=== PATIENT | female | born 1990 | race Caucasian/White ===

== ENCOUNTER 2017-07-31 18:20 | Emergency (ER) | payer MEDICAID ==
[2017-07-31 18:28] VITALS: BMI 35.5
--- NOTE | 2017-07-31 18:46 | DR.GENAD ---
HPI - PCP Primary Care Physician: CHARLES - Complaint/Symptoms Chief Complaint Doctors Comments: Patient presents with complaint of nausea and vomiting most of day. Onset of symptoms of nausea this morninng and has continued associated with vomiting. She admits to body aches and headache for one day. 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 Chief Complaint:: PATIENT STATED THAT SHE HAS BEEN SICK ALL DAY AND NIGHT THAT SHE TAKES MEDS FOR HEART RATE AND HTN BUT CAN'T KEEP IT DOWN. - Source History Provided: Patient - Mode of Arrival Mode of Arrival: Ambulatory - Timing Onset of Chief Complaint: 07/31/17 PMH - PMH Past Medical History: Yes Past Medical History: Depression, Seizures Past Medical History Comment: TACHYCARDIA Past Surgical History: Yes Surgical History: Tonsillectomy - Family History History of Family Medical Conditions: No - Social History Does patient currently use any type of tobacco product: No Have you used tobacco products in the last 12 months: No Type of Tobacco Use: None Does any household member use tobacco: No Alcohol Use: None Do you use any recreational Drugs:: No Lives With: Family Lives Where: Home - infectious screening In the last 2 months have you had wt loss of >10#?: NO Have you had fever, night sweats or hemotysis?: No Have you traveled outside the country in the last 6 months?: No Isolation: Standard ROS - Review of Systems Constitutional: Diaphoresis Eyes: No Symptoms Reported ENTM: No Symptoms Reported Respiratoy: No Symptoms Reported Cardiovascular: No Symptoms Reported Gastrointestinal/Abdominal: No Symptoms Reported Genitourinary: No Symptoms Reported Neurological: Headache Musculoskeletal: No Symptoms Reported Integumentary: No Symptoms Reported Hematologic/Lymphatic: No Symptoms Reported Endocrine: No Symptoms Reported Psychiatric: No Symptoms Reported All Other Systems: Reviewed and Negative PE - Vital Signs Vitals: Temperature 98.8 F Pulse Rate [Left Brachial] 128 Pulse Rate 147 Respiratory Rate 20 Blood Pressure [Right Arm] 123/73 Blood Pressure 130/63 O2 Sat by Pulse Oximetry 97 - General Limitations: No Limitations General Appearance: Alert, In No Apparent Distress - Head Head Exam: Normal Inspection, Atraumatic - Eyes Eye exam: Normal Appearance, PERRL, EOMI - ENT ENT Exam: Normal Exam External Ear Exam: Normal External Inspection TM/Canal Exam: Bilateral Normal Nose Exam: Normal Nose Exam Mouth Exam: Normal Inspection Throat Exam: Normal Inspection - Neck Neck Exam: Normal Inspection - Chest Chest Inspection: Normal Inspection - Respiratory Respiratory Exam: Normal Lung Sounds Bilat Respiratory Exam: Bilateral Clear to Auscultation - Cardiovascular Cardiovascular Exam: Tachycardia - Abdominal Exam Abdominal Exam: Normal Inspection Abdominal Tenderness: negative: RUQ, RLQ, LUQ, LLQ, Epigastrium, Suprapubic, Diffuse, Mild, Moderate, Severe, Other - Extremities Extremities Exam: Normal Inspection, Full ROM - Back Back Exam: Normal Inspection, Full ROM - Neurologic Neurological Exam: Alert, Oriented X3, CN II-XII Intact - Psychiatric Psychiatric Exam: Normal Affect - Skin Skin Exam: Warm, Dry, Intact Course - Reevaluation 1st: Improved ROR - Labs Reviewed Laboratory Results Reviewed?: Yes (Influenza negative) Result Diagrams: 07/31/17 19:00 07/31/17 19:00 Laboratory: WBC 8.4 X10^3/uL (3.6-10.0) 07/31/17 19:00 RBC 4.37 X10^6/uL (3.5-5.4) 07/31/17 19:00 Hgb 12.9 g/dL (12.0-16.0) 07/31/17 19:00 Hct 37.9 % (36.0-47.0) 07/31/17 19:00 MCV 86.8 fL (80.0-100.0) 07/31/17 19:00 MCH 29.6 pg (27.0-34.0) 07/31/17 19:00 MCHC 34.1 g/dL (33.0-35.0) 07/31/17 19:00 RDW 13.3 % (11.6-16.5) 07/31/17 19:00 Plt Count 308 X10^3/uL (150.0-450.0) 07/31/17 19:00 MPV 7.7 fL (7.4-11.0) 07/31/17 19:00 Neut % 88.6 % (42.0-75.0) H 07/31/17 19:00 Lymph % 4.7 % (21.0-51.0) L 07/31/17 19:00 [place] % 5.9 % (0.0-13.0) 07/31/17 19:00 Eos % 0.5 % (0.9-2.9) L 07/31/17 19:00 Baso % 0.3 % (0.2-1.0) 07/31/17 19:00 Neut # 7.5 x10^3/uL (2.2-4.8) H 07/31/17 19:00 Lymph # 0.4 X10^3/uL (1.3-2.9) L 07/31/17 19:00 [place] # 0.5 x10^3/uL (0.3-0.8) 07/31/17 19:00 Eos # 0.0 x10^3/uL (0.0-0.2) 07/31/17 19:00 Baso # 0.0 X10^3/uL (0.0-0.1) 07/31/17 19:00 Absolute Nucleated RBC 0.0 /100WBC 07/31/17 19:00 Sodium 135 mmol/L (136-145) L 07/31/17 19:00 Corrected Sodium 135 mmol/L (136-145) L 07/31/17 19:00 Potassium 3.7 mmol/L (3.5-5.1) 07/31/17 19:00 Chloride 100 mmol/L (98-107) 07/31/17 19:00 Carbon Dioxide 26.1 mmol/L (21-32) 07/31/17 19:00 BUN 10 mg/dL (7-18) 07/31/17 19:00 Creatinine 0.86 mg/dL (0.55-1.02) 07/31/17 19:00 Est GFR (MDRD) Af Amer > 60 (>60) 07/31/17 19:00 Est GFR (MDRD) Non-Af > 60 (>60) 07/31/17 19:00 Glucose 116 mg/dL (65-99) H 07/31/17 19:00 Calcium 8.6 mg/dL (8.5-10.1) 07/31/17 19:00 C-Reactive Protein 16.30 mg/L (0-3.0) H 07/31/17 19:00 Influenza Type A (PCR) Negative (NEGATIVE) 07/31/17 18:57 Influenza Type B (PCR) Negative (NEGATIVE) 07/31/17 18:57 - Diagnosis Discharge Problem: Influenza-like illness - Follow ups/Referrals Follow ups/Referrals: ION SOTO [Primary Care Provider] - 3 days - Instructions
[2017-07-31] MEDS ORDERED: NS 1000 ML 1,000 ML IV ONE (18:53)
[2017-07-31] MEDS ORDERED: TORADOL 30 MG VIAL IVP ONE (18:53)
[2017-07-31] MEDS ORDERED: PHENERGAN INJ 25 MG IV ONE (18:54)
[2017-07-31] MEDS ORDERED: NS 1000 ML 1,000 ML ONE (18:57)
[2017-07-31] MEDS ORDERED: PHENERGAN INJ 25 MG ONE (18:58)
[2017-07-31] MEDS ORDERED: TORADOL 30 MG VIAL ONE (18:58)
[2017-07-31 19:17] LABS: BASOPHILS % (AUTO) 0.3 % (0.2-1.0); EOSINOPHILS % (AUTO) 0.5 % (0.9-2.9); HEMATOCRIT 37.9 % (36.0-47.0); HEMOGLOBIN 12.9 g/dL (12.0-16.0); LYMPHOCYTES # (AUTO) 0.4 X10^3/uL (1.3-2.9); LYMPHOCYTES % (AUTO) 4.7 % (21.0-51.0); MEAN CORPUSCULAR HEMOGLOBIN 29.6 pg (27.0-34.0); MEAN CORPUSCULAR HGB CONC 34.1 g/dL (33.0-35.0); MEAN CORPUSCULAR VOLUME 86.8 fL (80.0-100.0); MEAN PLATELET VOLUME 7.7 fL (7.4-11.0); MONOCYTES # (AUTO) 0.5 x10^3/uL (0.3-0.8); MONOCYTES % (AUTO) 5.9 % (0.0-13.0); NEUTROPHILS # (AUTO) 7.5 x10^3/uL (2.2-4.8); NEUTROPHILS % (AUTO) 88.6 % (42.0-75.0); PLATELET COUNT 308 X10^3/uL (150.0-450.0); RED BLOOD COUNT 4.37 X10^6/uL (3.5-5.4); RED CELL DISTRIBUTION WIDTH 13.3 % (11.6-16.5); WHITE BLOOD COUNT 8.4 X10^3/uL (3.6-10.0)
[2017-07-31 19:22] LABS: BLOOD UREA NITROGEN 10 mg/dL (7-18); CALCIUM 8.6 mg/dL (8.5-10.1); CARBON DIOXIDE 26.1 mmol/L (21-32); CHLORIDE 100 mmol/L (98-107); COR NA(FOR HYPERGLY) 135 mmol/L (136-145); CREATININE 0.86 mg/dL (0.55-1.02); SODIUM 135 mmol/L (136-145); eGFR BLACK RACES > 60 (>60); eGFR NON BLACK RACES > 60 (>60)
[2017-07-31 20:40] VITALS: BP 123/73
== END 2017-07-31 20:56 | disposition home or self-care (01) ==
LOC: ER 18:32
DX: J11.1 Influenza due to unidentified influenza virus with other respiratory manifestations (principal)
CPT/HCPCS: 36415; 80048; 85025; 86140; 87502; 96365; 96374; 96375; 99282; 99283; A4222; J1885; J2550